=== PATIENT | female | born 2000 | race Caucasian/White ===

== ENCOUNTER 2020-06-27 00:22 | Emergency (ER) | payer OTHER ==
[~2020-06-27] VITALS: Ht 157.5 cm; Wt 54.4 kg
[2020-06-27 00:35] VITALS: BP_SYST 111
[2020-06-27] MEDS ORDERED: LORazepam 1 MG TABLET PO ONE (03:00)
[2020-06-27 03:45] VITALS: BP_SYST 111
== END 2020-06-27 03:45 | disposition home or self-care (01) ==
LOC: SED 00:22
DX: F41.0 Panic disorder [episodic paroxysmal anxiety] (principal); Z91.018 Allergy to other foods
CPT/HCPCS: 81025; 99283